=== PATIENT | male | born 1965 ===

== ENCOUNTER 2017-01-03 02:44 | Emergency (ER) | payer SELFPAY ==
--- NOTE | 2017-01-03 02:52 | C.PDOC ---
History Of Present Illness Patient brought in via EMS after being found sleeping on the streets intoxicated. Patient has not verbalized any complaints at this time. Time Seen by Provider: 01/03/17 02:51 Chief Complaint (Nursing): Substance Abuse History Per: Patient History/Exam Limitations: no limitations Onset/Duration Of Symptoms: Hrs Current Symptoms Are (Timing): Still Present Suicide/Self Injury Attempted (Context): None Modifying Factor(s): Alcohol Associated Symptoms: denies: Depression, Suicidal Thoughts, Suicidal Plan Involuntary Hold By: None Recent travel outside of the [place]: No Past Medical History Reviewed: Historical Data, Nursing Documentation, Vital Signs Vital Signs: Last Vital Signs Temp 97.4 F L 01/03/17 05:36 Pulse 93 H 01/03/17 05:36 Resp 18 01/03/17 05:36 BP 112/74 01/03/17 05:36 Pulse Ox 97 01/03/17 05:36 - Medical History PMH: No Chronic Diseases Surgical History: No Surg Hx Family History: States: Unknown Family Hx Review Of Systems Constitutional: Negative for: Fever, Chills Gastrointestinal: Negative for: Nausea, Vomiting, Diarrhea Physical Exam - Physical Exam Appears: Non-toxic, No Acute Distress, Other (ETOH on breath) Skin: Warm, Dry Head: Normacephalic Oral Mucosa: Moist Chest: Symmetrical, No Tenderness Cardiovascular: Rhythm Regular Respiratory: No Rales, No Rhonchi, No Wheezing Gastrointestinal/Abdominal: Soft, No Tenderness Neurological/Psych: Oriented x3 Disposition Counseled Patient/Family Regarding: Studies Performed, Diagnosis, Need For Followup - Disposition Referrals: [facility] [Outside] Disposition Time: 02:52 Condition: UNKNOWN Forms: [facility] (Portuguese) - Clinical Impression Clinical Impression: Alcohol intoxication - Scribe Statement The provider has reviewed the documentation as recorded by the Scribe Josh Vera All medical record entries made by the Scribe were at my direction and personally dictated by me. I have reviewed the chart and agree that the record accurately reflects my personal performance of the history, physical exam, medical decision making, and the department course for this patient. I have also personally directed, reviewed, and agree with the discharge instructions and disposition. Physician Patient Turnover Patient Signed Over To: Shashank Aleman Handoff Comments: pending sobriety and disposition
[2017-01-03 02:53] VITALS: RESP 18
[2017-01-03 06:44] VITALS: BP 115/69; PULSE 90; TEMP 97.6; O2SAT 98
== END 2017-01-03 06:51 | disposition home or self-care (01) ==
LOC: C.ER 02:44 → EDBD 02:44 → C.ER 06:51
DX: F10.120 Alcohol abuse with intoxication, uncomplicated (principal); Y90.9 Presence of alcohol in blood, level not specified